=== PATIENT | male | born 1975 ===

== ENCOUNTER 2025-03-27 06:30 | Day surgery (SDC) | payer BC, SELFPAY ==
[2025-03-27] VITALS (8 sets, daily range): BP systolic 120–157; BP diastolic 69–95; BMI 28.4
[2025-03-27] MEDS: NORMOSOL-R/PLASMALYTE-A 1000 IV (09:30)
[2025-03-27] MEDS: DILAUDID 0.5 MG IV (14:30)
== END 2025-03-27 15:37 | disposition home or self-care (01) ==
LOC: SDS 06:30
PROVIDERS: ATTENDING PHYSICIAN Otolaryngology
DX: J34.2 Deviated nasal septum (principal); J34.89 Other specified disorders of nose and nasal sinuses
CPT/HCPCS: 30520